=== PATIENT | male | born 1935 | race Caucasian/White ===

== ENCOUNTER 2016-09-16 16:49 | Emergency (ER) | payer MEDICARE, OTHER ==
--- NOTE | 2016-09-16 16:51 | EDM.PDOC ---
ED HPI GENERAL MEDICAL PROBLEM - General Chief Complaint: Lower Extremity Injury/Pain Stated Complaint: HIP POPPED, [id number] Time Seen by Provider: 09/16/16 16:51 Source of Information: Reports: Patient, RN, RN Notes Reviewed History Limitations: Reports: No Limitations - History of Present Illness INITIAL COMMENTS - FREE TEXT/NARRATIVE: Patient arrived by private vehicle complaining of dislocated right hip, occurring while he was at his boat trailer. No other injuries. Severity: Severe Improves with: Reports: None Worsens with: Reports: None Associated Symptoms: Reports: No Other Symptoms - Related Data Allergies Allergy/AdvReac Type Severity Reaction Status Date / Time levofloxacin [From Levaquin] Allergy Nausea Verified 09/16/16 17:09 Social & Family History - Family History Family Medical History: Noncontributory Review of Systems - Review of Systems Review Of Systems: ROS reveals no pertinent complaints other than HPI. ED EXAM, GENERAL - Physical Exam Exam: See Below Exam Limited By: No Limitations General Appearance: Alert, WD/WN, No Apparent Distress, Obese Head: Atraumatic, Normocephalic Neck: Normal Inspection Respiratory/Chest: No Respiratory Distress, Lungs Clear, Normal Breath Sounds, No Accessory Muscle Use, Chest Non-Tender Cardiovascular: Normal Peripheral Pulses, No Edema, No Gallop, No JVD, No Murmur , No Rub, Irregularly Irregular GI/Abdominal: Normal Bowel Sounds, Soft, Non-Tender, No Distention, Pelvis Stable Back Exam: Normal Inspection Extremities: Other (right lower extremity shortened and externally rotated. Tender to palpation with palpable prosthetic femoral head posterior consistent with a dislocation. Distal LINE PATROLMAN intact. ) Neurological: Alert, Oriented, Normal Cognition, No Motor/Sensory Deficits Psychiatric: Normal Affect, Normal Mood Skin Exam: Warm, Dry, Intact, Normal Color, No Rash Course - Orders/Labs/Meds Orders: Active Orders 24 hr Category Date Time Status Peripheral IV Care [RC] . DIRECTED Care 09/16/16 16:58 Active Hip Min 2V or 3V Rt [CR] Stat Exams 09/16/16 18:24 Ordered Pelvis wo Cont [CT] Stat Exams 09/16/16 16:57 Taken Sodium Chloride 0.9% [Saline Flush] Med 09/16/16 16:57 Active 10 ml FLUSH ASDIRECTED PRN Peripheral IV Insertion Adult [OM.PC] Stat Oth 09/16/16 16:57 Ordered Medication Orders Sodium Chloride (Saline Flush) 10 ml FLUSH ASDIRECTED PRN PRN Reason: Keep Vein Open Meds: Medications Generic Name Dose Route Start Last Admin Trade Name Freq PRN Reason Stop Dose Admin Sodium Chloride 10 ml 09/16/16 16:57 Saline Flush FLUSH ASDIRECTED PRN Keep Vein Open Discontinued Medications Generic Name Dose Route Start Last Admin Trade Name Freq PRN Reason Stop Dose Admin Fentanyl 50 mcg 09/16/16 17:00 09/16/16 17:09 Sublimaze IVPUSH 09/16/16 17:01 50 mcg ONETIME ONE Administration Fentanyl 50 mcg 09/16/16 17:34 09/16/16 17:43 Sublimaze IVPUSH 09/16/16 17:35 50 mcg ONETIME ONE Administration Fentanyl 50 mcg 09/16/16 18:50 Sublimaze IVPUSH 09/16/16 18:51 ONETIME ONE Midazolam HCl Confirm 09/16/16 17:57 Versed 1 Mg/Ml Administered 09/16/16 17:58 Dose 2 mg .ROUTE .STK-MED ONE Ondansetron HCl 4 mg 09/16/16 17:00 09/16/16 17:09 Zofran IV 09/16/16 17:01 4 mg ONETIME ONE Administration - Radiology Interpretation Free Text/Narrative:: CT pelvis: Per rad report reveals posterior right prosthetic hip dislocation. No convincing sign of acute right hip fracture. Departure - Departure Time of Disposition: 18:58 Disposition: DC/Tfer to [facility] 02 Condition: fair Clinical Impression: Dislocated hip Qualifiers: Encounter type: initial encounter Laterality: right Qualified Code(s): S73.004A - Unspecified dislocation of right hip, initial encounter - Discharge Information Forms: ED Department Discharge, Interfacility Transfer EMTALA - My Orders Last 24 Hours: My Active Orders 09/16/16 16:57 Pelvis wo Cont [CT] Stat Sodium Chloride 0.9% [Saline Flush] 10 ml FLUSH ASDIRECTED PRN Peripheral IV Insertion Adult [OM.PC] Stat 09/16/16 16:58 Peripheral IV Care [RC] . DIRECTED 09/16/16 18:24 Hip Min 2V or 3V Rt [CR] Stat - Assessment/Plan Last 24 Hours: My Active Orders 09/16/16 16:57 Pelvis wo Cont [CT] Stat Sodium Chloride 0.9% [Saline Flush] 10 ml FLUSH ASDIRECTED PRN Peripheral IV Insertion Adult [OM.PC] Stat 09/16/16 16:58 Peripheral IV Care [RC] . DIRECTED 09/16/16 18:24 Hip Min 2V or 3V Rt [CR] Stat
[2016-09-16] MEDS ORDERED: Midazolam 1 MG/ML 2 ML SDV IV ONE (16:56)
[2016-09-16] MEDS ORDERED: Propofol 200 MG/20 ML SDV IV ONE (16:56)
[2016-09-16] MEDS ORDERED: Sodium Chloride 0.9% 10 ML Syringe FLUSH PRN (16:57)
[2016-09-16] MEDS ORDERED: fentaNYL 100 MCG/2 ML SDV IVPUSH ONE ×5 (17:00→21:05)
[2016-09-16] MEDS ORDERED: Ondansetron 4 MG/2 ML SDV IV ONE (17:00)
[2016-09-16] MEDS ORDERED: Midazolam 1 MG/ML 2 ML SDV ONE (17:57)
--- NOTE | 2016-09-16 19:27 | PCM.SN ---
- Free Text/Narrative Note: Called to provide conscious sedation for this patient to reduce right hip dislocation. After consent signed by (pt had received sedation prior to my arrival), monitors on and O2 via FM; proceeded. I gave midazolam 2mg iv, followed by slow titration of propofol. First attempt titrated in 40mg of propofol iv, then xray taken. Hip still displaced so another reduction attempted. Again slow titration of propofol given, this time 50mg. VS remained stable with SPO2 100% the entire time, with B/P ranging from 110's-120's/70's, HR in 70's (in AF), and RR 12-20 entire duration. Pt remained arousable to stimulation, able to protect airway the entire time.
[2016-09-16] MEDS ORDERED: Sodium Chloride 0.9% 1,000 ML IV ONE (20:34)
[2016-09-16 23:14] VITALS: BP 116/55
== END 2016-09-16 22:32 ==
LOC: DL.ED 16:49
DX: T84.020A Dislocation of internal right hip prosthesis, initial encounter (principal); Z88.1 Allergy status to other antibiotic agents
CPT/HCPCS: 01200; 72192; 73501; 81001; 96361; 96374; 96375; 96376; 99285; J2250; J2405; J2704; J3010; J7030; 27252; 27265; 51702; 99284